=== PATIENT | female | born 1930 | race Caucasian/White ===

== ENCOUNTER 2018-02-05 03:57 | Emergency (ER) | payer MEDICARE ==
[~2018-02-05] VITALS: Ht 157.5 cm; Wt 68.0 kg
--- OUTSIDE RECORDS SUMMARY | 2018-02-05 03:59 | XMS REPORT | Clinical Summary ---
Author Author [employer] [facility] [employer] [facility] Address Unknown Phone Unavailable Care Team Providers Care Knocker Off Name Role Phone Haley Gamino MD PCP Allergies Comments Active Allergy Reactions Severity Noted Date Can't remember reaction Samuel Inhibitors Other (See 09/06/2013 Comments) Potassium Diarrhea 08/13/2017 Sulfa (Sulfonamide Rash Low 09/06/2013 Antibiotics) Medications End Date Status Medication Sig Dispensed Refills Start Date Active OXYBUTYNIN CHLORIDE ORAL Take by 0 mouth. Active ATENOLOL ORAL Take by 0 mouth. Active OMEGA-3 FATTY ACIDS (FISH Take by 0 OIL CONCENTRATE ORAL) mouth. Active RIVAROXABAN (XARELTO Take by 0 ORAL) mouth. Active amLODIPine (NORVASC) 2.5 Take 2.5 mg 0 MG tablet by mouth daily. Active donepezil (ARICEPT) 10 MG Take 10 mg by 0 tablet mouth nightly. Active traZODone (DESYREL) 50 MG Take 50 mg by 0 tabletIndications: takes mouth 3 pills nightly. Active multivitamin capsule Take 1 0 capsule by mouth daily. Active omega-3 fatty acids-fish Take 1 g by 0 oil 340-1,000 mg Cap per mouth 2 (two) capsule times daily. Active calcium carbonate (TUMS Take 3 0 EX) 300 mg Chew tablets by mouth once. 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 Last Filed Vital Signs Time Taken Vital Sign Reading 08/14/2017 11:45 AM CDT Blood Pressure 125/59 08/14/2017 11:45 AM CDT Pulse 72 08/14/2017 11:45 AM CDT Temperature 36.2 C (97.2 F) 08/14/2017 11:45 AM CDT Respiratory Rate 18 08/14/2017 11:45 AM CDT Oxygen Saturation 98% - Inhaled Oxygen - Concentration 08/14/2017 7:37 AM CDT Weight 62.2 kg (137 lb 1.6 oz) 08/14/2017 7:37 AM CDT Height 160 cm (5' 3") 08/14/2017 7:37 AM CDT Body Mass Index 24.29 Plan of Treatment Not on file Implants Device Identifier Shelf Expiration Date Model / Serial / Lot Implanted Type Area Manufactur er 10/30/2018 [id number] / N/A / [id number] Imp Prolaryn Plus 1cc Inj [id number] [place] N/A: Vocal Cord GISEL - Sn/A [employer]ology [employer] Implanted: Qty: 1 on 08/14/2017 by INC Marycruz Roque MD Procedures Comments Procedure Name Priority Date/Time Associated Diagnosis RHYTHM STRIP - SCAN 08/17/2017 1:40 PM CDT LARYNGOSCOPY,INJECTION 08/14/2017 Presbylarynges FOR AUGMENTATION 10:39 AM CDT after 02/04/2017 Results * RHYTHM STRIP - SCAN (08/17/2017 1:40 PM CDT) Narrative Performed At after 02/04/2017 Insurance Payer Benefit Subscriber ID Type Phone Address Plan / Group [facility] xxxxxxxxxxx MEDICARE ADV
[2018-02-05] MEDS ORDERED: CALCIUM CARBONATE 500 MG CHEWABLE TABS PO SCH (04:45)
[2018-02-05 04:57] VITALS: BP 127/54
== END 2018-02-05 05:40 | disposition home or self-care (01) ==
LOC: ER 03:57
DX: M79.621 Pain in right upper arm (principal); S40.021A Contusion of right upper arm, initial encounter; W01.0XXA Fall on same level from slipping, tripping and stumbling without subsequent striking against object, initial encounter
CPT/HCPCS: 99282

== ENCOUNTER 2019-07-08 09:31 | Observation (INO) | payer MEDICARE ==
[~2019-07-08] VITALS: Ht 160 cm; Wt 68.0 kg
[2019-07-08] VITALS (7 sets, daily range): BP systolic 131–169; BP diastolic 48–71
--- OUTSIDE RECORDS SUMMARY | 2019-07-08 09:34 | XMS REPORT ---
Author Author [facility] Address Unknown Phone Unavailable Care Team Providers Care Asbestos Removal Worker Name Role Phone NO, PCP PP Unavailable Problems This patient has no known problems. Allergies, Adverse Reactions, Alerts Allergy Name Allergy Type Status Severity Reaction(s) Onset Date Inactive Date Treating Clinician Comments Angiotensin-converting enzyme inhibitor Allergy to Substance Active Unknown 2018-02-05 00:00:00 SULFA Allergy to Substance Active Unknown 2018-02-05 00:00:00 Medications This patient has no known medications. Encounters Start Date/Time End Date/Time Encounter Type Admission Type Attending Clinicians Care Facility Care Department Encounter ID 2018-02-05 03:57:00 2018-02-05 05:40:00 Departed Emergency Room [facility] [id number]
[2019-07-08] MEDS ORDERED: ONDANSETRON HCL INJ 2MG/ML 2ML 2 MG/ML VIAL IV STA (10:16)
[2019-07-08] MEDS ORDERED: SODIUM CHLORIDE 0.9% 1000ML 1,000 ML IV SCH (10:30)
[2019-07-08] MEDS ORDERED: ONDANSETRON HCL INJ 2MG/ML 2ML 2 MG/ML VIAL ONE ×2 (11:33→19:40)
[2019-07-08] MEDS ORDERED: D5.45%NS/KCL 20MEQ 1,000 ML IV SCH (11:33)
[2019-07-08] MEDS ORDERED: SODIUM CHLORIDE 0.9% 1000ML 1,000 ML ONE (11:33)
--- NOTE | 2019-07-08 11:34 | Diagnostic Imaging Report ---
EXAM: CT Abdomen and Pelvis WITHOUT intravenous contrast INDICATION: Nausea, vomiting COMPARISON: None. TECHNIQUE: Abdomen and pelvis were scanned utilizing a multidetector helical scanner from the lung base to the pubic symphysis without administration of IV contrast. Coronal and sagittal reformations were obtained. IV CONTRAST: None ORAL CONTRAST: None COMPLICATIONS: None RADIATION DOSE: Total DLP: 1010 mGy*cm Dose modulation, iterative reconstruction, and/or weight based adjustment of the mA/kV was utilized to reduce the radiation dose to as low as reasonably achievable. FINDINGS: LOWER THORAX: Bibasilar dependent subsegmental atelectasis. Small sliding hiatal hernia. There is a metallic ring at the gastroesophageal junction, likely ingested. HEPATOBILIARY: No focal hepatic lesions. No biliary ductal dilatation. SPLEEN: No splenomegaly. PANCREAS: No focal masses or ductal dilatation. ADRENALS: No adrenal nodules. KIDNEYS/URETERS: No hydronephrosis or renal calculi. 1 cm left upper pole renal cyst. PELVIC ORGANS/BLADDER: Hysterectomy. PERITONEUM / RETROPERITONEUM: No free air or fluid. LYMPH NODES: No lymphadenopathy. VESSELS: Scattered atherosclerotic calcifications of the nonaneurysmal abdominal aorta and major branches. GI TRACT: Diverticulosis without CT evidence of diverticulitis. No abnormal bowel thickening. No bowel obstruction. BONES AND SOFT TISSUES: No acute osseous injury. No suspicious lytic or blastic lesions. Degenerative changes of the visualized spine. Diffuse osteopenia. IMPRESSION: Small sliding hiatal hernia with a metallic ring, likely ingested, located at the gastroesophageal junction. Signed by: Aida Miranda MD on 07/08/2019 11:31 AM
[2019-07-08] MEDS ORDERED: MEMANTINE HCL5 MG PO (14:55)
[2019-07-08] MEDS ORDERED: DONEPEZIL HCL10 MG PO (14:55)
[2019-07-08] MEDS ORDERED: MULTI-VITAMIN1 EACH (14:55)
[2019-07-08] MEDS ORDERED: AMLODIPINE BESYL5 MG PO (14:55)
[2019-07-08] MEDS ORDERED: TRAZODONE HCL100 MG PO (14:55)
[2019-07-08] MEDS ORDERED: MYRBETRIQ25 MG PO (14:55)
[2019-07-08] MEDS ORDERED: CEFTRIAXONE SOD 1 GM/NS 50 ML 50 ML IV SCH (15:00)
[2019-07-08] MEDS ORDERED: PANTOPRAZOLE 40 MG 10ML VIAL ONE (15:23)
[2019-07-08] MEDS ORDERED: SODIUM CHLORIDE 0.9% INJ 10 ML VIAL ONE (15:23)
[2019-07-08] MEDS ORDERED: PANTOPRAZOLE 40 MG 10ML VIAL IV SCH (15:30)
[2019-07-08] MEDS: PANTOPRAZOL 40MG/SOD CHL 0.9% 50 ML IV SCH ×2 (16:30→21:56)
[2019-07-08] MEDS ORDERED: SODIUM CHLORIDE 0.9% 250ML 250 ML ONE (16:34)
[2019-07-08] MEDS: CEFTRIAXONE SOD 1 GM/NS 50 ML 50 ML IV SCH (17:00)
[2019-07-08] MEDS ORDERED: PROPOFOL IV EMULSION 10 MG/ML 20 ML VIAL ONE (19:40)
[2019-07-08] MEDS ORDERED: EPHEDRINE SULFATE INJ 50 MG/ML VIAL ONE (19:40)
[2019-07-08] MEDS ORDERED: SEVOFLURANE INHAL SOLN 250 ML PEN BTL ONE (19:40)
[2019-07-08] MEDS ORDERED: LIDOCAINE HCL 2% LOCAL INJ 5 ML SDV VIAL INJ ONE (19:40)
[2019-07-08] MEDS ORDERED: GLUCAGON FOR INJ 1 MG VIAL ONE (19:40)
[2019-07-08] MEDS ORDERED: SUCCINYLCHOLINE CHLORIDE 20 MG/ML 10ML VIAL ONE (19:40)
[2019-07-08] MEDS ORDERED: DEXAMETHASONE SOD PHOS INJ 4 MG/ML VIAL ONE (19:40)
--- NOTE | 2019-07-08 20:13 | History and Physical ---
PRIMARY CARE DOCTOR: Dr. Haley Gamino. CHIEF COMPLAINT: Vomiting. HISTORY OF PRESENT ILLNESS: This is an 89-year-old woman with dementia. Unfortunately, she cannot give any history. Her daughter is at the bedside who lives with her, stated that she has been vomiting for the last 36 hours. Apparently, she also found out that her wedding ring is missing. The patient had endoscopy within the last year, in which she has no hiatal hernia and possibly some narrowing of the esophagus. The patient has no control over her urine. She wears a pull-up; however, per daughter, she has not heard her complaining of any dysuria. PAST MEDICAL AND SURGICAL HISTORY: 1. Hypertension. 2. GERD. 3. Hiatal hernia. 4. . 5. Cholecystectomy. MEDICATIONS: Please see medication reconciliation form. ALLERGIES: TO IODINE. SOCIAL HISTORY: Does not smoke. FAMILY HISTORY: Positive for diabetes. REVIEW OF SYSTEMS: Unable to obtain due to dementia. PHYSICAL EXAMINATION: VITAL SIGNS: Temperature 98.3, pulse 90, respiratory rate 18, blood pressure 155/70. SKIN: No rash. GENERAL: No acute distress. HEENT: Sclerae anicteric. Oropharynx is dry. LUNGS: Clear. HEART: Regular rate and rhythm. Normal S1 and S2. ABDOMEN: Soft, nontender. NEUROLOGIC: Alert and oriented. Cranial nerves II through XII grossly intact. PSYCHIATRIC: She is calm. MUSCULOSKELETAL: No painless range of motion. LABORATORY DATA: White count 11, hemoglobin 13, and platelet count 189. Sodium 148, potassium 3.3, creatinine 0.9, sugar 151. UA positive for nitrite. CT shows a metallic ring located at the GE junction. ASSESSMENT AND PLAN: 1. Gastroesophageal junction foreign body. The patient is about to have EGD right now with Dr. John. We will continue to keep her n.p.o. Afterwards, we will see if she is able to eat. We will also need to find out whether she has esophageal stricture as well. 2. Hypernatremia, likely due to dehydration. We will give her some IV fluid. 3. Hypokalemia. We will replete. 4. Hypertension. After her EGD, we will resume her home medications. 5. Pyuria. Urine culture is pending. We will start Rocephin. 6. Dementia. 7. Gastrointestinal and deep venous thrombosis prophylaxis, PPI and no chemical deep venous thrombosis prophylaxis due to planned procedure. MD LEONARDA Monson/KAYE /[id number] cc: [facility]
[2019-07-08] MEDS ORDERED: TRAZODONE HCL 50 MG TAB PO SCH (21:00)
[2019-07-08] MEDS ORDERED: ACETAMINOPHEN 325 MG TAB PO PRN (21:00)
[2019-07-08] MEDS ORDERED: ONDANSETRON HCL INJ 2MG/ML 2ML 2 MG/ML VIAL IV PRN (21:00)
[2019-07-08] MEDS ORDERED: CLONIDINE HCL 0.1 MG TAB PO PRN (21:00)
--- NOTE | 2019-07-08 22:14 | Operative Report ---
DATE OF PROCEDURE: 07/08/2019 SURGEON: Carmelo John MD PROCEDURE: EGD with foreign body removal. ADDITIONAL REFERRING PHYSICIAN: Dr. Rasheed at [facility]. INDICATION FOR PROCEDURE: Foreign body in esophagus. MEDICATIONS: The patient was done under general endotracheal anesthesia, please see anesthesiologist's note. PROCEDURE IN DETAIL: With the patient in the left lateral decubitus position, after adequate induction of general endotracheal anesthesia, a flexible fiberoptic Olympus gastroscope was introduced into the esophagus and advanced to the distal esophagus. There were some erosions noted in the distal esophagus. The ring was noted, lodged in the distal esophagus, that was removed per the rat tooth forceps. The scope was then reintroduced into the esophagus and the place where the ring was lodged was ulcerated. A mild stricture was noted at the GE junction, that was traversed with ease and the scope was advanced all the way into the stomach. Mucosa overlying the antrum and the body revealed some patchy areas of erythema. The pylorus was of normal contour and shape, it was intubated with ease and the scope was advanced all the way to the second portion of the duodenum. The scope was then withdrawn slowly. Mucosa overlying the proximal second portion and the duodenal bulb appeared to be within normal limits. The scope was then withdrawn back into the stomach and retroflexed. Mucosa overlying the fundus appeared to be within normal limits. There was a small hiatal hernia noted in the retroflexed position. The scope was then straightened out, it was subsequently withdrawn. The patient tolerated the procedure well. IMPRESSION: 1. Erosive distal esophagitis. 2. Ring noted lodged in distal esophagus, removed per rat tooth forceps. 3. 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 4. Small sliding hiatal hernia. 5. Gastritis, mild. PLAN: Initiate clear liquid diet. Protonix 40 mg IV b.i.d. Carmelo John MD [facility]/KAYE /[id number] cc: [facility] Kush Peñaloza MD
[2019-07-09] VITALS: BP 157/63
[2019-07-09] MEDS: PANTOPRAZOL 40MG/SOD CHL 0.9% 50 ML IV SCH ×4 (02:24→17:00)
[2019-07-09 04:00] VITALS: BP 157/64
[2019-07-09 05:37] LABS: BASOPHILS % 0.1 % (0.0-1.0); EOSINOPHILS # (AUTO) 0.1 (0.0-0.4); EOSINOPHILS % 0.5 % (0.0-6.0); LYMPHOCYTES # (AUTO) 1.9 (1.0-3.2); LYMPHOCYTES % 18.8 % (18.0-39.1); MEAN CORPUSCULAR HEMOGLOBIN 30.5 pg (28-32); MEAN CORPUSCULAR HGB CONC 32.4 g/dL (31-35); MEAN CORPUSCULAR VOLUME 93.9 fL (81-99); MONOCYTES # (AUTO) 0.7 (0.2-0.8); NEUTROPHILS # (AUTO) 7.4 (2.1-6.9); NEUTROPHILS % 73.3 % (38.7-80.0); PLATELET COUNT 153 x10e3/uL (140-360); RED BLOOD COUNT 3.94 x10e6/uL (3.6-5.1); RED CELL DISTRIBUTION WIDTH 13.7 % (11.7-14.4)
[2019-07-09 06:02] LABS: ANION GAP 11.6 mmol/L (8-16); BLOOD UREA NITROGEN 13 mg/dL (7-26); BUN/CREATININE RATIO 16 (6-25); CALCIUM 9.3 mg/dL (8.4-10.2); CARBON DIOXIDE 26 mmol/L (22-29); CHLORIDE 107 mmol/L (98-107); EST GLOMERULAR FILTRATION RATE > 60 ML/MIN (60-); GLUCOSE 100 mg/dL (74-118); POTASSIUM 3.6 mmol/L (3.5-5.1); SODIUM 141 mmol/L (136-145)
[2019-07-09 08:00] VITALS: BP 134/67
[2019-07-09] MEDS: MEMANTINE 10 MG TAB PO SCH ×2 (08:00→16:41)
[2019-07-09 08:30] VITALS: BP 134/67
[2019-07-09] MEDS ORDERED: HOME MEDICATION--PATIENTS OWN PO SCH (09:00)
[2019-07-09] MEDS ORDERED: AMLODIPINE BESYLATE 5 MG TAB PO SCH (09:00)
[2019-07-09] MEDS ORDERED: DONEPEZIL HCL 5 MG TAB PO SCH (09:00)
[2019-07-09 12:00] VITALS: BP 154/69
[2019-07-09 16:00] VITALS: BP 114/63
[2019-07-09] MEDS: CEFTRIAXONE SOD 1 GM/NS 50 ML 50 ML IV SCH (16:41)
[2019-07-09] MEDS ORDERED: CEFTRIAXONE SOD 2 GM/NS 100 ML 100 ML IV ONE (17:00)
[2019-07-09] MEDS ORDERED: PANTOPRAZOLE SO40 MG PO (17:05)
--- NOTE | 2019-07-09 18:47 | Discharge Summary ---
PRIMARY CARE DOCTOR: Dr. Haley Gamino. FINAL DIAGNOSIS: Foreign body in distal esophagus. SECONDARY DIAGNOSES: 1. Distal erosive esophagitis. 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 3. Hypertension. 4. Hiatal hernia. CONSULTANTS: Dr. John, GI. PROCEDURES/STUDIES PERFORMED: EGD and CT of abdomen and pelvis. HISTORY: Per [facility] and [facility]. HOSPITAL COURSE: The patient underwent EGD with the above finding. The wedding ring was retrieved. The patient was put on Protonix drip. At this time, the patient will go home on Protonix 40 mg twice a day. The patient is tolerating p.o. at this time now. I have discussed with Dr. John. He could not do an esophageal dilation due to risk of perforation with erosive esophagitis present. However, this should be done in a couple weeks. I have relayed this message to her primary care doctor, who will set it up. The patient was seen and examined today. CONDITION ON DISCHARGE: Improved. DISCHARGE MEDICATIONS: Please see medication reconciliation form. Breannching MD LEONARDA Orr/KAYE /[id number] cc: [facility]
== END 2019-07-09 18:23 | disposition home or self-care (01) ==
LOC: FSED 09:31 → ERHOLD 11:36 → MED/SURG2 13:18
PROVIDERS: ADMIT Internal Medicine; ATTEND Internal Medicine
DX: T18.198A Other foreign object in esophagus causing other injury, initial encounter (principal); X58.XXXA Exposure to other specified factors, initial encounter; F03.90 Unspecified dementia, unspecified severity, without behavioral disturbance, psychotic disturbance, mood disturbance, and anxiety; R82.81 Pyuria; E87.0 Hyperosmolality and hypernatremia; E87.6 Hypokalemia; K22.2 Esophageal obstruction; K44.9 Diaphragmatic hernia without obstruction or gangrene; K29.70 Gastritis, unspecified, without bleeding
CPT/HCPCS: 36415; 43239; 74176; 80048; 80076; 81003; 83735; 84443; 85025; 87086; 87186; 96366; 96374; 99284; G0378; J0330; J0696; J1100; J1610; J2001; J2405; J7030; J7050